=== PATIENT | female | born 1960 | race Caucasian/White ===

== ENCOUNTER → 2018-09-04 14:17 | Outpatient (CLI) | payer OTHER, MEDICAID, SELFPAY ==
--- NOTE | 2018-09-04 | DI.US.S_ITS ---
LIMITED ULTRASOUND OF LEFT BREAST: 09/04/2018 CLINICAL: Follow up from addtional views. Comparison is made to exams dated: 09/04/2018 mammogram - [facility], 05/08/2016 mammogram, and 08/12/2018 mammogram - [facility]. Ultrasound of the left breast upper outer quadrant was performed on the area of interest. No abnormalities were seen sonographically in the left breast. IMPRESSION: NEGATIVE There is no sonographic evidence of malignancy. There is no abnormality seen in the left breast to correspond with the mammography finding in the upper outer quadrant. A 1 year screening mammogram is recommended.(09/05/2019) This exam was interpreted at Station ID: [id number]. Electronically Signed By: Grzegorz mariano/mark:09/05/2018 07:40:47 Entry: - 09/05/2018 07:40:47 letter sent: Normal Exam Ultrasound BI-RADS: 1 Negative
--- NOTE | 2018-09-04 | DI.MG.S_ITS ---
UNILATERAL LEFT DIGITAL DIAGNOSTIC MAMMOGRAM 3D/2D WITH ADDITIONAL VIEWS: 09/04/2018 CLINICAL: Additional evaluation requested from prior study. Comparison is made to exams dated: 05/08/2016 mammogram and 08/12/2018 mammogram - [facility]. The tissue of left breast is heterogeneously dense. This may lower the sensitivity of mammography. There is an oval low density asymmetry with an indistinct margin in the left breast at 1 o'clock posterior depth. This is not seen in additional views. No other significant masses or calcifications are seen in the breast. IMPRESSION: INCOMPLETE: NEEDS ADDITIONAL IMAGING EVALUATION The oval low density asymmetry in the left breast is indeterminate. An ultrasound is recommended. This exam was interpreted at Station ID: [id number]. NOTE: For mammograms, a report in lay terms will be sent to the patient. Approximately 15% of breast malignancies will not be visualized mammographically. In the management of a palpable breast mass, a negative mammogram must not discourage biopsy of a clinically suspicious lesion. Electronically Signed By: Grzegorz mariano/mark:09/05/2018 07:40:33 Entry: - 09/05/2018 07:40:33 letter sent: Need Ultrasound ACR BI-RADS Category 0: Incomplete [id number]
== END ==
PROVIDERS: PCP Family Medicine; Visit Provider Family Medicine
DX: R92.8 Other abnormal and inconclusive findings on diagnostic imaging of breast (principal)
CPT/HCPCS: 76642; 77065; G0279

== ENCOUNTER → 2022-01-18 15:44 | Outpatient (CLI) | payer OTHER, MEDICAID, SELFPAY | PROVIDERS: PCP Physician Assistant; Visit Provider Physician Assistant | DX: J02.9 Acute pharyngitis, unspecified (principal) | CPT/HCPCS: 87070; 87880 ==

== ENCOUNTER → 2022-02-27 10:49 | Outpatient (CLI) | payer OTHER, MEDICAID, SELFPAY ==
[2022-02-27 19:37] LABS: Add Manual Diff / Slide Review NO; Basophils Absolute Auto 0 /uL (0-100); Basophils Percent Auto 0.9 % (0-2); Eosinophils Absolute Auto 100 /uL (0-450); Eosinophils Percent Auto 1.3 % (2-4); Hematocrit 39.2 % (36-46); Hemoglobin 13.2 g/dL (12.0-16.0); Lymphocytes Absolute Auto 1600 /uL (1100-4500); Lymphocytes Percent Auto 29.3 % (25-40); Mean Corpuscular HGB Conc 33.7 % (30-36); Mean Corpuscular Hemoglobin 29.7 PG (26-34); Mean Corpuscular Volume 88.3 fL (80-100); Monocytes Absolute Auto 400 /uL (0-900); Monocytes Percent Auto 7.6 % (3-14); Neutrophils Absolute Auto 3300 /uL (1500-7000); Neutrophils Percent Auto 60.9 % (50-75); Platelet Count 261 X10^3/uL (150-400); Red Blood Cell Count 4.44 X10^6/uL (4.0-5.2); Red Cell Distribution Width 13.2 % (11.6-14.8); White Blood Cell Count 5.4 X10^3/uL (4.5-11.0)
[2022-02-27 19:48] LABS: Alanine Aminotransferase 25 IU/L (<35); Albumin 3.7 g/dL (3.5-5.0); Albumin Globulin Ratio 1.4 (1.0-2.8); Alkaline Phosphatase 49 U/L (38-126); Aspartate Aminotransferase 31 IU/L (14-36); BUN Creatinine Ratio 29.3 (6-22); Bilirubin Total 0.6 mg/dL (0.2-1.3); Blood Urea Nitrogen 22 mg/dL (7-17); Calcium 8.9 mg/dL (8.4-10.2); Carbon Dioxide 27 mmol/L (22-32); Chloride 101 mmol/L (98-107); Estimated Glomerular Filt Rate > 60.0 mL/min (>60); Globulin 2.6 g/dL (1.7-4.1); Glucose 73 mg/dL (80-110); HEMOLYSIS < 15 (0-50); Potassium 4.9 mmol/L (3.4-5.1); Sodium 133 mmol/L (137-145); Total Protein 6.3 g/dL (6.3-8.2)
[2022-02-27 20:04] LABS: Hemoglobin A1C% w Est Avg Glu 5.3 % (4.0-6.0)
[2022-02-27 20:17] LABS: TSH w/ Reflex to FT4 3.02 uIU/mL (0.47-4.68)
== END ==
PROVIDERS: PCP Physician Assistant; Visit Provider Physician Assistant
DX: K59.09 Other constipation (principal); Z86.39 Personal history of other endocrine, nutritional and metabolic disease; R35.0 Frequency of micturition; Z80.0 Family history of malignant neoplasm of digestive organs
CPT/HCPCS: 80053; 81002; 83036; 84443; 85025

== ENCOUNTER → 2022-03-01 08:05 | Outpatient (CLI) | payer OTHER, MEDICAID, SELFPAY ==
[2022-03-01 21:45] LABS: Cholesterol 233 mg/dL (140-199); HDL Cholesterol 52 mg/dL (40-60); LDL Cholesterol Calculated 154 mg/dL (<100); Triglycerides 135 mg/dL (35-150)
== END ==
PROVIDERS: PCP Physician Assistant; Visit Provider Physician Assistant
DX: E78.5 Hyperlipidemia, unspecified (principal)
CPT/HCPCS: 80061

== ENCOUNTER → 2022-06-12 14:31 | Outpatient (CLI) | payer OTHER, MEDICAID, SELFPAY ==
[2022-06-12 20:47] LABS: TSH w/ Reflex to FT4 2.65 uIU/mL (0.47-4.68)
== END ==
PROVIDERS: PCP Family Medicine; Visit Provider Family Medicine
DX: K59.09 Other constipation (principal)
CPT/HCPCS: 84443

== ENCOUNTER → 2023-02-13 10:12 | Outpatient (CLI) | payer MEDICARE, OTHER, MEDICAID, SELFPAY ==
--- NOTE | 2023-02-13 10:28 | DI.DEXA.S_ITS ---
Indication: postmenopausal; screening for osteoporosis; Referring Provider: BEHZAD WOLFE Study: Bone densitometry was performed. Exam Date: February 13, 2023 Accession number: [id number] Bone Density: Region BMD T-score Z-score Classification AP Spine(L1, L2, L4) 0.900 -1.2 0.5 Osteopenia Femoral Neck (Left) 0.824 -0.2 1.3 Normal Total Hip (Left) 0.866 -0.6 0.6 Normal Femoral Neck (Right) 0.713 -1.2 0.3 Osteopenia Total Hip (Right) 0.810 -1.1 0.1 Osteopenia Total Hip Mean 0.838 -0.9 0.4 Normal World Health Organization criteria for BMD impression classify patients as: Normal (T-score at or above -1.0), Osteopenia (T-score between -1.0 and -2.5), or Osteoporosis (T-score at or below -2.5). 10-year Fracture Risk(1): Major Osteoporotic Fracture 7.4% Hip Fracture 0.7% Reported Risk Factors: [place] (), Neck BMD=0.713, BMI=20.8 (1) FRAX(R) Version 3.08. Fracture probability calculated for an untreated patient. Fracture probability may be lower if the patient has received treatment. Previous Exams: -- Region Exam Age BMD T-score BMD Change BMD Change Date g/cm2 vs Baseline vs Previous -- AP Spine (L1-L2,L4) 02/13/2023 63 0.900 -1.2 -0.153 (-14.5%)# -0.153 (-14.5%)# 06/11/2006 46 1.053 Total Hip(Left) 02/13/2023 63 0.866 -0.6 -0.073 (-7.8%)# -0.073 (-7.8%)06/11/2006 46 0.939 Total Hip(Right) 02/13/2023 63 0.810 -1.1 -0.078 (-8.8%)# -0.078 (-8.8%)# 06/11/2006 46 0.888 -- *Denotes significance at 95% confidence level, LSC for AP Spine = 0.022 g/cm2, LSC for Total Hip = 0.027 g/cm2 # Denotes dissimilar scan types or analysis methods Impression: The patient has low bone mass, based on the Total Spine T-score. The patient has an estimated ten-year risk of hip fracture of 0.7% and an estimated ten-year risk of major fracture of 7.4%, based on the WHO FRAX algorithm. No significant bone loss was observed. Discussion: BONE DENSITY IS LOW AT ONE OR MORE SKELETAL SITES. This patient's lowest T-score is low at one or more skeletal sites. It meets the World Health Organization's (WHO) criteria for ?low bone mass? (T-score between -1.0 and -2.5). The patient's 10-year risk of fracture as calculated by FRAX is less than the threshold where pharmacological therapy is recommended by the National Osteoporosis Foundation (NOF). However, all treatment decisions require clinical judgment and consideration of individual patient factors, including patient preferences, comorbidities, previous drug use, risk factors not captured in the FRAX model (e.g., frailty, falls, vitamin D deficiency, increased bone turnover, interval significant decline in bone density) and possible under or overestimation of fracture risk by FRAX. The patient should follow a healthful lifestyle (good nutrition with adequate calcium and vitamin D, and appropriate weight-bearing exercise). Follow-Up: Consider repeating this study in 2 to 3 years to reassess this patient's status, or sooner if there is some new clinical indication. Reported by: NOMI GODINEZ M.D. on 02/13/2023 10:35:00 AM.
== END ==
PROVIDERS: PCP Physician Assistant; Referring Provider Physician Assistant; Visit Provider Physician Assistant
DX: Z78.0 Asymptomatic menopausal state (principal); Z13.820 Encounter for screening for osteoporosis; M85.88 Other specified disorders of bone density and structure, other site
CPT/HCPCS: 77080

== ENCOUNTER → 2023-02-26 10:01 | Outpatient (CLI) | payer MEDICARE, OTHER, SELFPAY ==
[2023-02-26 19:56] LABS: Mean Corpuscular HGB Conc 33.9 % (30-36)
[2023-02-26 20:00] LABS: Hemoglobin 13.2 g/dL (12.0-16.0); Mean Corpuscular Hemoglobin 30.1 PG (26-34); Mean Corpuscular Volume 88.9 fL (80-100); Platelet Count 268 X10^3/uL (150-400); Red Blood Cell Count 4.39 X10^6/uL (4.0-5.2); White Blood Cell Count 4.8 X10^3/uL (4.5-11.0)
[2023-02-26 20:09] LABS: Alanine Aminotransferase 23 IU/L (<35); Albumin 3.7 g/dL (3.5-5.0); Albumin Globulin Ratio 1.5 (1.0-2.8); Alkaline Phosphatase 52 U/L (38-126); Aspartate Aminotransferase 30 IU/L (14-36); Bilirubin Total 0.6 mg/dL (0.2-1.3); Blood Urea Nitrogen 17 mg/dL (7-17); Calcium 8.7 mg/dL (8.4-10.2); Carbon Dioxide 29 mmol/L (22-32); Chloride 99 mmol/L (98-107); Cholesterol 216 mg/dL (140-199); Estimated Glomerular Filt Rate > 60 mL/min (>60); Globulin 2.5 g/dL (1.7-4.1); Glucose 94 mg/dL (80-110); HDL Cholesterol 67 mg/dL (40-60); HEMOLYSIS < 15 (0-50); LDL Cholesterol Calculated 135 mg/dL (<100); Potassium 4.3 mmol/L (3.4-5.1); Sodium 133 mmol/L (137-145); Total Protein 6.2 g/dL (6.3-8.2); Triglycerides 68 mg/dL (35-150)
[2023-02-26 20:35] LABS: Neutrophils Absolute Manual 2544 /uL (3000-5900); RBC Morphology Normal Morphology; Total Cells Counted 100
[2023-02-26 21:01] LABS: Hep C Virus Ab w/Reflex Quant NEGATIVE s/c (NEGATIVE)
== END ==
PROVIDERS: PCP Physician Assistant; Visit Provider Physician Assistant
DX: R35.0 Frequency of micturition (principal); Z11.59 Encounter for screening for other viral diseases; E87.8 Other disorders of electrolyte and fluid balance, not elsewhere classified
CPT/HCPCS: 80053; 80061; 85025; 86803

== ENCOUNTER → 2023-08-08 11:03 | Outpatient (CLI) | payer MEDICARE, OTHER, SELFPAY ==
[2023-08-08 19:08] LABS: Add Manual Diff / Slide Review NO; Basophils Absolute Auto 100 /uL (0-100); Basophils Percent Auto 1.2 % (0-2); Eosinophils Absolute Auto 100 /uL (0-450); Eosinophils Percent Auto 2.3 % (2-4); Hematocrit 36.7 % (36-46); Hemoglobin 12.7 g/dL (12.0-16.0); Lymphocytes Absolute Auto 1500 /uL (1100-4500); Lymphocytes Percent Auto 33.4 % (25-40); Mean Corpuscular HGB Conc 34.7 % (30-36); Mean Corpuscular Hemoglobin 31.3 PG (26-34); Mean Corpuscular Volume 90.1 fL (80-100); Monocytes Absolute Auto 400 /uL (0-900); Monocytes Percent Auto 8.7 % (3-14); Neutrophils Absolute Auto 2500 /uL (1500-7000); Neutrophils Percent Auto 54.4 % (50-75); Platelet Count 204 X10^3/uL (150-400); Red Blood Cell Count 4.07 X10^6/uL (4.0-5.2); Red Cell Distribution Width 12.6 % (11.6-14.8); White Blood Cell Count 4.6 X10^3/uL (4.5-11.0)
[2023-08-08 19:17] LABS: Alanine Aminotransferase 24 IU/L (<35); Albumin 3.8 g/dL (3.5-5.0); Albumin Globulin Ratio 1.4 (1.0-2.8); Alkaline Phosphatase 51 U/L (38-126); Aspartate Aminotransferase 29 IU/L (14-36); BUN Creatinine Ratio 25.6 (6-22); Bilirubin Total 0.8 mg/dL (0.2-1.3); Blood Urea Nitrogen 21 mg/dL (7-17); Calcium 9.2 mg/dL (8.4-10.2); Carbon Dioxide 25 mmol/L (22-32); Chloride 100 mmol/L (98-107); Cholesterol 192 mg/dL (140-199); Estimated Glomerular Filt Rate > 60 mL/min (>60); Globulin 2.7 g/dL (1.7-4.1); Glucose 90 mg/dL (80-110); HDL Cholesterol 57 mg/dL (40-60); HEMOLYSIS < 15 (0-50); LDL Cholesterol Calculated 128 mg/dL (<100); Potassium 4.5 mmol/L (3.4-5.1); Sodium 132 mmol/L (137-145); Total Protein 6.5 g/dL (6.3-8.2); Triglycerides 35 mg/dL (35-150)
== END ==
PROVIDERS: PCP Physician Assistant; Visit Provider Physician Assistant
DX: E78.00 Pure hypercholesterolemia, unspecified (principal); Z86.2 Personal history of diseases of the blood and blood-forming organs and certain disorders involving the immune mechanism; K59.04 Chronic idiopathic constipation; E87.1 Hypo-osmolality and hyponatremia; R00.1 Bradycardia, unspecified
CPT/HCPCS: 80053; 80061; 84443; 85025

== ENCOUNTER → 2023-11-14 13:28 | Outpatient (CLI) | payer MEDICARE, OTHER, SELFPAY ==
[2023-11-14 19:58] LABS: Alanine Aminotransferase 23 IU/L (<35); Albumin Globulin Ratio 1.5 (1.0-2.8); Alkaline Phosphatase 53 U/L (38-126); Aspartate Aminotransferase 30 IU/L (14-36); BUN Creatinine Ratio 27.1 (6-22); Bilirubin Total 0.8 mg/dL (0.2-1.3); Blood Urea Nitrogen 19 mg/dL (7-17); Calcium 9.6 mg/dL (8.4-10.2); Carbon Dioxide 28 mmol/L (22-32); Chloride 98 mmol/L (98-107); Estimated Glomerular Filt Rate > 60 mL/min (>60); Globulin 2.6 g/dL (1.7-4.1); Glucose 79 mg/dL (80-110); HEMOLYSIS < 15 (0-50); Potassium 3.7 mmol/L (3.4-5.1); Sodium 134 mmol/L (137-145); Total Protein 6.6 g/dL (6.3-8.2)
== END ==
PROVIDERS: PCP Physician Assistant; Visit Provider Physician Assistant
DX: E87.1 Hypo-osmolality and hyponatremia (principal)
CPT/HCPCS: 80053

== ENCOUNTER → 2024-12-16 09:05 | Outpatient (CLI) | payer MEDICARE, OTHER, SELFPAY | PROVIDERS: PCP Physician Assistant; Visit Provider Physician Assistant | DX: J02.9 Acute pharyngitis, unspecified (principal) | CPT/HCPCS: 87070 ==

== ENCOUNTER → 2025-08-20 14:29 | Outpatient (CLI) | payer MEDICARE, OTHER, SELFPAY ==
[2025-08-20 18:58] LABS: Hematocrit 35.7 % (36-46); Hemoglobin 12.3 g/dL (12.0-16.0); Mean Corpuscular HGB Conc 34.5 % (30-36); Mean Corpuscular Hemoglobin 29.7 PG (26-34); Mean Corpuscular Volume 86.0 fL (80-100); Platelet Count 203 X10^3/uL (150-400)
[2025-08-20 19:14] LABS: Alanine Aminotransferase 28 IU/L (<35); Albumin 3.9 g/dL (3.5-5.0); Albumin Globulin Ratio 1.6 (1.0-2.8); Alkaline Phosphatase 61 U/L (38-126); Blood Urea Nitrogen 21 mg/dL (7-17); Calcium 9.0 mg/dL (8.4-10.2); Carbon Dioxide 28 mmol/L (22-32); Chloride 100 mmol/L (98-107); Estimated Glomerular Filt Rate > 60 mL/min (>60); Globulin 2.4 g/dL (1.7-4.1); Glucose 87 mg/dL (70-99); HEMOLYSIS < 15 (0-50); Magnesium 2.0 mg/dL (1.6-2.3); Potassium 4.2 mmol/L (3.4-5.1); Sodium 133 mmol/L (137-145); Total Protein 6.3 g/dL (6.3-8.2)
[2025-08-20 19:46] LABS: TSH w/ Reflex to FT4 < 0.02 uIU/mL (0.47-4.68)
[2025-08-20 19:56] LABS: Eosinophils Percent Manual 1.0 % (2-4); Lymphocytes Percent Manual 47.0 % (25-45); Monocytes Percent Manual 1.0 % (2-11); Neutrophils Absolute Manual 2805 /uL (3000-5900); RBC Morphology Normal Morphology; Segmented Neutrophils Percent 51.0 % (38-70); Total Cells Counted 100
[2025-08-20 20:29] LABS: Free T4, Direct Thyroxine 1.73 ng/dL (0.78-2.19)
== END ==
PROVIDERS: PCP Physician Assistant; Visit Provider Physician Assistant
DX: D72.819 Decreased white blood cell count, unspecified (principal); E87.1 Hypo-osmolality and hyponatremia; R35.1 Nocturia
CPT/HCPCS: 80053; 83735; 84439; 84443; 85025

== ENCOUNTER → 2025-08-24 06:35 | Outpatient (CLI) | payer MEDICARE, OTHER, SELFPAY ==
[2025-08-24 18:56] LABS: Appearance Urine UA CLEAR; Bilirubin Urine UA NEGATIVE (NEGATIVE); Color Urine UA YELLOW; Glucose Urine UA NEGATIVE (Negative); Ketones Urine UA NEGATIVE (NEGATIVE); Leukocyte Esterase Urine UA NEGATIVE (NEGATIVE); Nitrite Urine UA NEGATIVE (Negative); Occult Blood Urine UA NEGATIVE (Negative); Protein Urine UA NEGATIVE (Negative); Specific Gravity Urine UA 1.010 (1.000-1.035); Urobilinogen Urine UA 0.2 E.U./dL (0.2)
[2025-08-24 19:13] LABS: pH Urine UA 7.5 (4.5-8.0)
[2025-08-24 19:44] LABS: Culture Indicated Urine Cult Not Indicated
== END ==
PROVIDERS: PCP Physician Assistant; Visit Provider Physician Assistant
DX: R35.1 Nocturia (principal); E87.1 Hypo-osmolality and hyponatremia
CPT/HCPCS: 81001; 82043; 82570

== ENCOUNTER → 2025-10-08 09:13 | Outpatient (CLI) | payer MEDICARE, OTHER, SELFPAY ==
--- NOTE | 2025-10-08 09:14 | DI.US.S_ITS ---
PROCEDURE: US THYROID INDICATIONS: ABNORMAL THYROID RESULTS TECHNIQUE: Real-time scanning was performed of the thyroid gland, with image documentation. COMPARISON: None. FINDINGS: Thyroid: Right lobe measures 4.0 x 1.3 x 1.4 cm. Left lobe measures 3.5 x 1.5 x 1.2 cm. Isthmus is 0.2 cm thick. Echotexture is heterogenous No suspicious nodules requiring follow-up. IMPRESSION: No suspicious nodules requiring follow-up ACR TI-RADS definitions and recommendations: TI-RADS 1 (benign): 0 points. FNA not needed. TI-RADS 2 (not suspicious): 2 points. FNA not needed. TI-RADS 3: 3 points. * FNA if 2.5 cm or larger, follow up if 1.5 cm or larger (at 1, 3, and 5 years). TI-RADS 4: 4-6 points. * FNA if 1.5 cm or larger, follow up if 1 cm or larger (at 1, 2, 3, and 5 years). TI-RADS 5: 7 points or more. * FNA if 1 cm or larger, follow up if 0.5 cm or larger (every year for 5 years). Dictated by: Agustin Frausto M.D. on 10/12/2025 at 11:38 Approved by: Agustin Frausto M.D. on 10/12/2025 at 11:39
== END ==
PROVIDERS: PCP Physician Assistant; Referring Provider Physician Assistant; Visit Provider Physician Assistant
DX: R94.6 Abnormal results of thyroid function studies (principal)
CPT/HCPCS: 76536

== ENCOUNTER → 2025-10-08 13:07 | Outpatient (CLI) | payer MEDICARE, OTHER, SELFPAY ==
--- NOTE | 2025-10-08 13:08 | DI.MRI.S_ITS ---
PROCEDURE: MR LUMBAR SPINE WO CON INDICATIONS: bilateral leg weakness, lumbar pain. xray 09/29/25 TECHNIQUE: Noncontrast sagittal T1 spin echo and T2 fast echo, sagittal STIR, and T2 fast spin echo through the lumbar spine. In cases with scoliosis, additional coronal T2 fast spin echo may be performed. COMPARISON: None. FINDINGS: Image quality: Excellent. Alignment and Curvature: There is normal bony alignment. Bone Marrow: Marrow is of normal overall signal. No acute vertebral body compression fractures. Spinal Cord: Conus medullaris terminates at the L1 level. Visualized cord demonstrates normal signal and size. Paraspinous Soft Tissues: No paravertebral masses. T12-L1: Normal appearance. L1-L2: Normal appearance. L2-L3: Normal appearance. L3-L4: Normal appearance. L4-L5: Disc bulge and arthropathy. Moderate central stenosis. Mild bilateral foraminal stenosis. 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 on 10/08/2025 at 16:34 Approved by: Agustin Frausto M.D. on 10/08/2025 at 16:37
== END ==
PROVIDERS: PCP Physician Assistant; Referring Provider Physician Assistant; Visit Provider Physician Assistant
DX: M51.360 Other intervertebral disc degeneration, lumbar region with discogenic back pain only (principal); M47.816 Spondylosis without myelopathy or radiculopathy, lumbar region; M48.061 Spinal stenosis, lumbar region without neurogenic claudication; R29.898 Other symptoms and signs involving the musculoskeletal system; R94.6 Abnormal results of thyroid function studies
CPT/HCPCS: 72148; 76536

== ENCOUNTER → 2025-10-27 14:24 | Outpatient (CLI) | payer MEDICARE, OTHER, SELFPAY ==
[2025-10-27 18:57] LABS: Add Manual Diff / Slide Review NO; Hematocrit 37.7 % (36-46); Hemoglobin 13.3 g/dL (12.0-16.0); Lymphocytes Absolute Auto 2100 /uL (1100-4500); Mean Corpuscular HGB Conc 35.2 % (30-36); Mean Corpuscular Hemoglobin 29.5 PG (26-34); Mean Corpuscular Volume 83.7 fL (80-100); Platelet Count 279 X10^3/uL (150-400)
[2025-10-27 19:11] LABS: Alanine Aminotransferase 28 IU/L (<35); Albumin 4.3 g/dL (3.5-5.0); Albumin Globulin Ratio 1.7 (1.0-2.8); Alkaline Phosphatase 65 U/L (38-126); Blood Urea Nitrogen 18 mg/dL (7-17); Calcium 9.0 mg/dL (8.4-10.2); Carbon Dioxide 26 mmol/L (22-32); Chloride 104 mmol/L (98-107); Estimated Glomerular Filt Rate > 60 mL/min (>60); Globulin 2.5 g/dL (1.7-4.1); Glucose 114 mg/dL (70-99); HEMOLYSIS 21 (0-50); Potassium 4.2 mmol/L (3.4-5.1); Sodium 139 mmol/L (137-145); Total Protein 6.8 g/dL (6.3-8.2)
[2025-10-27 19:25] LABS: Free T3, Triiodothyronine Free 5.73 pg/mL (2.77-5.27)
[2025-10-27 19:39] LABS: TSH w/ Reflex to FT4 < 0.02 uIU/mL (0.47-4.68)
[2025-10-27 19:58] LABS: Vitamin B12 921 pg/mL (239-931)
[2025-10-27 20:27] LABS: Free T4, Direct Thyroxine 1.56 ng/dL (0.78-2.19)
== END ==
PROVIDERS: PCP Physician Assistant; Visit Provider Physician Assistant
DX: R94.6 Abnormal results of thyroid function studies (principal); R53.1 Weakness; G57.93 Unspecified mononeuropathy of bilateral lower limbs; E87.1 Hypo-osmolality and hyponatremia; R29.898 Other symptoms and signs involving the musculoskeletal system; M85.89 Other specified disorders of bone density and structure, multiple sites; D64.9 Anemia, unspecified
CPT/HCPCS: 80053; 82310; 82607; 83970; 84439; 84443; 84481; 85025; 85651; 86376